=== PATIENT | female | born 2000 | race Caucasian/White ===

== ENCOUNTER 2023-11-04 20:49 | Outpatient (CLI) | payer MEDICAID ==
[~2023-11-04] VITALS: Ht 167.6 cm; Wt 77.3 kg
[~2023-11-04 20:49] MED LIST: FLEXERIL 1010 MG/TAB PO; NORCO 325 MG-51 TAB PO
[2023-11-04] MEDS ORDERED: LR 1,000 ML IV PRN (21:00)
[2023-11-04 21:30] VITALS: BP 131/68; PULSE 111; TEMP 98.8
--- NOTE | 2023-11-04 21:30 | NUR ---
2100: Pt arrives ambulatory from home with c/o of back pain/cramping since yesterday, but did develop fever, chills, sore throat, cough and general malaise starting today. Reports that she took an at home Covid test that was negative. Denies any LOF, VB and reports good movement. Pt with a mask on and resting in bed.
[2023-11-04] MEDS ORDERED: Ondansetron 4 MG/2 ML VIAL IV ONE (21:45)
[2023-11-04 22:00] VITALS: BP 119/74; PULSE 105
--- NOTE | 2023-11-04 22:00 | NUR ---
0: Orders recieved for pt to get 1 L of IV fluids, CBC, CMP, UA, Rapid Flu and Rapid Covid swab to be collected. Pt informed of the orders. 2144: IV fluids infusing at this time and bloodwork is in the lab.
[2023-11-04 22:14] LABS: MEAN CELL VOLUME 81 fl (80.0-100.0); MEAN CORPUSCULAR HGB CONC 32 g/dl (33.0-37.0); MEAN PLATELET VOLUME 10.9 fl (7.4-10.4); PLATELET COUNT 296 K/mm3 (130-400); RED BLOOD COUNT 3.33 M/mm3 (4.10-5.30)
[2023-11-04 22:17] LABS: HEMOGLOBIN 8.6 g/dl (12.5-16.0); MEAN CORPUSCULAR HEMOGLOBIN 26 pg (27-31)
[2023-11-04 22:30] VITALS: BP 119/66; PULSE 102
--- NOTE | 2023-11-04 22:30 | NUR ---
Pt with a moment of sitting upright in the bed, US began tracing maternal heart rate when this occured. US adjusted due to maternal position. Pt is also up to the bathroom during this tracing and provides a UA.
[2023-11-04 22:31] LABS: COLLECTION METHOD CLEAN CATCH
[2023-11-04 22:43] LABS: URINE APPEARANCE CLEAR (CLEAR/HAZY); URINE BLOOD NEGATIVE (NEGATIVE); URINE COLOR YELLOW (YELLOW); URINE GLUCOSE NEGATIVE (NEGATIVE); URINE KETONE NEGATIVE (NEGATIVE); URINE NITRATE NEGATIVE (NEGATIVE); URINE PROTEIN(semi-quant) NEGATIVE (NEGATIVE)
[2023-11-04 22:45] LABS: BAND 6 % (0-10); HYPOCHROMIA 2+; LYMPHOCYTE 5 % (20.0-51.0); NEUTROPHILS 86 % (42.0-75.2); PLATELET ESTIMATE NORMAL (NORMAL)
[2023-11-04 22:48] LABS: ANISOCYTOSIS 1+; OVALOCYTES 1+
[2023-11-04 22:51] LABS: ALANINE AMINOTRANSFERASE 10 U/L (0-55); ALBUMIN 2.6 g/dL (3.5-5.0); ALKALINE PHOSPHATASE 113 U/L (40-150); ANION GAP 13 mmol/L (7-16); AST,SGOT 16 U/L (5-34); BILIRUBIN,TOTAL 0.4 mg/dL (0.2-1.2); CALCIUM 8.6 mg/dL (8.4-10.2); CHLORIDE 106 mEq/L (98-107); CREATININE, serum 0.63 mg/dL (0.57-1.11); GLUCOSE 99 mg/dL (70-99); POTASSIUM 3.7 mEq/L (3.5-4.5); SODIUM 135 mEq/L (136-145); TOTAL PROTEIN 6.2 g/dl (6.2-8.1)
[2023-11-04 22:52] LABS: BLOOD UREA NITROGEN < 5 mg/dL (7-19)
[2023-11-04 23:00] VITALS: BP 129/63; PULSE 94
[2023-11-04 23:15] VITALS: BP 128/61; PULSE 101
[2023-11-04] MEDS ORDERED: Acetaminophen 500 MG TAB PO ONE (23:15)
== END 2023-11-04 23:30 | disposition home or self-care (01) ==
LOC: LDRO 20:49
PROVIDERS: Student in an Organized Health Care Education/Training Program
DX: O99.891 Other specified diseases and conditions complicating pregnancy (principal); M54.50 Low back pain, unspecified; Z3A.33 33 weeks gestation of pregnancy
CPT/HCPCS: J2405; J7120